=== PATIENT | female | born 1955 | race African-American/Black ===

== ENCOUNTER 2021-10-15 18:04 | Inpatient (IN) | payer OTHER ==
[2021-10-15] MEDS ORDERED: DICYCLOMINE HCL 10 MG CAPSULE PO PRN (22:25)
[2021-10-15] MEDS ORDERED: NICOTINE 10 MG CARTRIDGE (INHALER) IH PRN (22:25)
[2021-10-15] MEDS ORDERED: IBUPROFEN 600 MG TABLET (FP) PO PRN (22:25)
[2021-10-15] MEDS ORDERED: ACETAMINOPHEN 325 MG TABLET (FP) PO PRN (22:25)
[2021-10-15] MEDS ORDERED: BISMUTH SUBSALICYLATE 524 MG/30 ML PO PRN (22:25)
[2021-10-15] MEDS ORDERED: MAGNESIUM HYDROX 2400MG/30ML ORAL SUSPENSION 30 ML CUP PO PRN (22:25)
[2021-10-15] MEDS ORDERED: METHOCARBAMOL 500 MG TABLET PO PRN (22:25)
[2021-10-15] MEDS ORDERED: BENZOCAINE/MENTHOL (CHLORASEPTIC ) LOZENGE MM PRN (22:25)
[2021-10-15] MEDS ORDERED: LOPERAMIDE HCL 2 MG CAPSULE PO PRN (22:25)
[2021-10-15] MEDS ORDERED: MAGNESIUM CITRATE 300 ML BOTTLE PO PRN (22:25)
[2021-10-16] MEDS ORDERED: TUBERCULIN PPD 5 TU/0.1ML VIAL ID ONE (02:39)
[2021-10-16] MEDS: ACETAMINOPHEN 325 MG TABLET (FP) PO PRN (03:29)
[2021-10-16] MEDS: hydrOXYzine PAMOATE 25 MG CAPSULE (FP) PO SCH ×5 (07:23→21:23)
[2021-10-16] MEDS: PRENATAL VITAMINS W/ FOLIC ACID TABLET (FP) PO SCH (11:05)
[2021-10-16] MEDS: IBUPROFEN 400 MG TABLET (FP) PO PRN (11:11)
[2021-10-16] MEDS: MAG HYDROX/AL HYDROX/SIMETH 30 ML UNIT-DOSE CUP PO PRN (11:11)
[2021-10-16 12:33] LABS: HEMOGLOBIN 11.1 GM/dL (10.7-15.3); MCH 33.4 pg (25.7-33.7); MCHC 33.5 g/dl (32.0-36.0); MEAN CELL VOLUME 99.5 fl (80-96); MEAN PLT VOLUME 8.9 fl (7.5-11.1); PLATELET COUNT 111 10^3/uL (134-434); RBC 3.31 M/mm3 (3.60-5.2)
[2021-10-16 12:47] LABS: ALBUMIN 3.2 g/dl (3.4-5.0); BLOOD UREA NITROGEN 8.3 mg/dL (7-18)
[2021-10-16 12:50] LABS: BILIRUBIN,TOTAL 0.8 mg/dL (0.2-1); CREATININE 0.6 mg/dL (0.55-1.3)
[2021-10-16 12:52] LABS: TOT PROT 5.9 g/dl (6.4-8.2)
[2021-10-16] MEDS: THIAMINE HCL 100 MG TABLET (FP) PO SCH (21:23)
[2021-10-16] MEDS: MELATONIN 5 MG TABLETS PO SCH (21:24)
[2021-10-17] MEDS: hydrOXYzine PAMOATE 25 MG CAPSULE (FP) PO SCH ×5 (06:37→21:26)
[2021-10-17] MEDS: metFORMIN HCL 500 MG TABLET (FP) PO SCH (06:40)
[2021-10-17] MEDS: MAG HYDROX/AL HYDROX/SIMETH 30 ML UNIT-DOSE CUP PO PRN ×2 (06:41→21:29)
[2021-10-17] MEDS: amLODIPine BESYLATE 10 MG TABLET (FP) PO SCH (10:59)
[2021-10-17] MEDS: PRENATAL VITAMINS W/ FOLIC ACID TABLET (FP) PO SCH (10:59)
[2021-10-17] MEDS: ACETAMINOPHEN 325 MG TABLET (FP) PO PRN (11:00)
[2021-10-17] MEDS: THIAMINE HCL 100 MG TABLET (FP) PO SCH (21:26)
[2021-10-17] MEDS: MELATONIN 5 MG TABLETS PO SCH (21:29)
[2021-10-18] MEDS: hydrOXYzine PAMOATE 25 MG CAPSULE (FP) PO SCH ×5 (06:40→21:20)
[2021-10-18] MEDS: MAG HYDROX/AL HYDROX/SIMETH 30 ML UNIT-DOSE CUP PO PRN ×2 (06:40→18:58)
[2021-10-18] MEDS: metFORMIN HCL 500 MG TABLET (FP) PO SCH (06:40)
[2021-10-18] MEDS: ONDANSETRON *ODT* 4 MG TABLET SL PRN (09:28)
[2021-10-18] MEDS: amLODIPine BESYLATE 10 MG TABLET (FP) PO SCH (10:51)
[2021-10-18] MEDS: PRENATAL VITAMINS W/ FOLIC ACID TABLET (FP) PO SCH (10:51)
[2021-10-18] MEDS: FAMOTIDINE 20 MG TABLET PO SCH (21:20)
[2021-10-18] MEDS: MELATONIN 5 MG TABLETS PO SCH (21:20)
[2021-10-18] MEDS: THIAMINE HCL 100 MG TABLET (FP) PO SCH (21:21)
[2021-10-19] MEDS: hydrOXYzine PAMOATE 25 MG CAPSULE (FP) PO SCH ×5 (06:48→21:47)
[2021-10-19] MEDS: metFORMIN HCL 500 MG TABLET (FP) PO SCH (06:48)
[2021-10-19] MEDS: MAG HYDROX/AL HYDROX/SIMETH 30 ML UNIT-DOSE CUP PO PRN (06:49)
[2021-10-19] MEDS: PRENATAL VITAMINS W/ FOLIC ACID TABLET (FP) PO SCH (10:46)
[2021-10-19] MEDS: FAMOTIDINE 20 MG TABLET PO SCH ×2 (10:47→21:47)
[2021-10-19] MEDS: amLODIPine BESYLATE 10 MG TABLET (FP) PO SCH (10:47)
[2021-10-19] MEDS: MELATONIN 5 MG TABLETS PO SCH (21:47)
[2021-10-19] MEDS: THIAMINE HCL 100 MG TABLET (FP) PO SCH (21:47)
[2021-10-20] MEDS: hydrOXYzine PAMOATE 25 MG CAPSULE (FP) PO SCH ×5 (06:20→21:17)
[2021-10-20] MEDS: metFORMIN HCL 500 MG TABLET (FP) PO SCH (06:20)
[2021-10-20] MEDS: IBUPROFEN 400 MG TABLET (FP) PO PRN (06:20)
[2021-10-20] MEDS: FAMOTIDINE 20 MG TABLET PO SCH ×2 (10:15→21:17)
[2021-10-20] MEDS: amLODIPine BESYLATE 10 MG TABLET (FP) PO SCH (10:15)
[2021-10-20] MEDS: PRENATAL VITAMINS W/ FOLIC ACID TABLET (FP) PO SCH (10:17)
[2021-10-20] MEDS: MAG HYDROX/AL HYDROX/SIMETH 30 ML UNIT-DOSE CUP PO PRN ×2 (10:17→21:19)
[2021-10-20] MEDS: MELATONIN 5 MG TABLETS PO SCH (21:17)
[2021-10-20] MEDS: THIAMINE HCL 100 MG TABLET (FP) PO SCH (21:17)
[2021-10-20] MEDS: ACETAMINOPHEN 325 MG TABLET (FP) PO PRN (21:18)
[2021-10-21] MEDS: metFORMIN HCL 500 MG TABLET (FP) PO SCH (06:55)
[2021-10-21] MEDS: hydrOXYzine PAMOATE 25 MG CAPSULE (FP) PO SCH ×3 (06:55→16:11)
[2021-10-21] MEDS: MAG HYDROX/AL HYDROX/SIMETH 30 ML UNIT-DOSE CUP PO PRN (10:46)
[2021-10-21] MEDS: amLODIPine BESYLATE 10 MG TABLET (FP) PO SCH (10:46)
[2021-10-21] MEDS: FAMOTIDINE 20 MG TABLET PO SCH ×2 (10:46→21:51)
[2021-10-21] MEDS: PRENATAL VITAMINS W/ FOLIC ACID TABLET (FP) PO SCH (10:47)
[2021-10-21] MEDS: ACETAMINOPHEN 325 MG TABLET (FP) PO PRN (10:48)
[2021-10-21] MEDS ORDERED: hydrOXYzine PAMOATE 25 MG CAPSULE (FP) PO PRN (16:22)
[2021-10-21] MEDS: MELATONIN 5 MG TABLETS PO SCH (21:51)
[2021-10-21] MEDS: THIAMINE HCL 100 MG TABLET (FP) PO SCH (21:51)
[2021-10-21] MEDS: IBUPROFEN 400 MG TABLET (FP) PO PRN (21:54)
[2021-10-22] MEDS: metFORMIN HCL 500 MG TABLET (FP) PO SCH (07:44)
[2021-10-22] MEDS: PRENATAL VITAMINS W/ FOLIC ACID TABLET (FP) PO SCH (10:20)
[2021-10-22] MEDS: FAMOTIDINE 20 MG TABLET PO SCH ×2 (10:20→21:26)
[2021-10-22] MEDS: amLODIPine BESYLATE 10 MG TABLET (FP) PO SCH (10:20)
[2021-10-22] MEDS: MAG HYDROX/AL HYDROX/SIMETH 30 ML UNIT-DOSE CUP PO PRN (10:21)
[2021-10-22] MEDS: ONDANSETRON *ODT* 4 MG TABLET SL PRN (20:24)
[2021-10-22] MEDS: MELATONIN 5 MG TABLETS PO SCH (21:26)
[2021-10-22] MEDS: THIAMINE HCL 100 MG TABLET (FP) PO SCH (21:26)
[2021-10-22] MEDS: ACETAMINOPHEN 325 MG TABLET (FP) PO PRN (21:27)
[2021-10-23] MEDS: metFORMIN HCL 500 MG TABLET (FP) PO SCH (07:10)
[2021-10-23] MEDS: PRENATAL VITAMINS W/ FOLIC ACID TABLET (FP) PO SCH (10:45)
[2021-10-23] MEDS: FAMOTIDINE 20 MG TABLET PO SCH ×2 (10:45→21:57)
[2021-10-23] MEDS: amLODIPine BESYLATE 10 MG TABLET (FP) PO SCH (10:46)
[2021-10-23] MEDS: ACETAMINOPHEN 325 MG TABLET (FP) PO PRN (10:47)
[2021-10-23] MEDS: THIAMINE HCL 100 MG TABLET (FP) PO SCH (21:57)
[2021-10-23] MEDS: MELATONIN 5 MG TABLETS PO SCH (21:57)
[2021-10-24] MEDS: ACETAMINOPHEN 325 MG TABLET (FP) PO PRN (05:47)
[2021-10-24] MEDS: metFORMIN HCL 500 MG TABLET (FP) PO SCH (06:46)
[2021-10-24] MEDS ORDERED: INSULIN SLIDING SCALE (NOVOLOG) 1 VIAL SQ ONE (08:15)
[2021-10-24] MEDS: PRENATAL VITAMINS W/ FOLIC ACID TABLET (FP) PO SCH (10:40)
[2021-10-24] MEDS: amLODIPine BESYLATE 10 MG TABLET (FP) PO SCH (10:40)
[2021-10-24] MEDS: FAMOTIDINE 20 MG TABLET PO SCH ×2 (10:40→22:07)
[2021-10-24] MEDS: THIAMINE HCL 100 MG TABLET (FP) PO SCH (22:06)
[2021-10-24] MEDS: MELATONIN 5 MG TABLETS PO SCH (22:07)
[2021-10-25] MEDS: metFORMIN HCL 500 MG TABLET (FP) PO SCH (06:35)
[2021-10-25 08:17] VITALS: RESP 18
[2021-10-25] MEDS: PRENATAL VITAMINS W/ FOLIC ACID TABLET (FP) PO SCH (10:35)
[2021-10-25] MEDS: FAMOTIDINE 20 MG TABLET PO SCH ×2 (10:36→21:19)
[2021-10-25] MEDS: amLODIPine BESYLATE 10 MG TABLET (FP) PO SCH (10:36)
[2021-10-25] MEDS: THIAMINE HCL 100 MG TABLET (FP) PO SCH (21:19)
[2021-10-25] MEDS: MELATONIN 5 MG TABLETS PO SCH (21:20)
[2021-10-26] MEDS: metFORMIN HCL 500 MG TABLET (FP) PO SCH (06:26)
[2021-10-26] MEDS: MAG HYDROX/AL HYDROX/SIMETH 30 ML UNIT-DOSE CUP PO PRN (06:27)
[2021-10-26] MEDS: amLODIPine BESYLATE 10 MG TABLET (FP) PO SCH (10:35)
[2021-10-26] MEDS: PRENATAL VITAMINS W/ FOLIC ACID TABLET (FP) PO SCH (10:35)
[2021-10-26] MEDS: FAMOTIDINE 20 MG TABLET PO SCH ×2 (10:35→21:15)
[2021-10-26] MEDS: THIAMINE HCL 100 MG TABLET (FP) PO SCH (21:15)
[2021-10-26] MEDS: MELATONIN 5 MG TABLETS PO SCH (21:15)
[2021-10-27] MEDS: metFORMIN HCL 500 MG TABLET (FP) PO SCH (06:01)
[2021-10-27] MEDS: FAMOTIDINE 20 MG TABLET PO SCH ×2 (10:33→21:18)
[2021-10-27] MEDS: PRENATAL VITAMINS W/ FOLIC ACID TABLET (FP) PO SCH (10:33)
[2021-10-27] MEDS: amLODIPine BESYLATE 10 MG TABLET (FP) PO SCH (10:33)
[2021-10-27] MEDS: THIAMINE HCL 100 MG TABLET (FP) PO SCH (21:18)
[2021-10-27] MEDS: MELATONIN 5 MG TABLETS PO SCH (21:18)
[2021-10-28] MEDS: metFORMIN HCL 500 MG TABLET (FP) PO SCH (06:21)
[2021-10-28] MEDS: PRENATAL VITAMINS W/ FOLIC ACID TABLET (FP) PO SCH (10:39)
[2021-10-28] MEDS: amLODIPine BESYLATE 10 MG TABLET (FP) PO SCH (10:40)
[2021-10-28] MEDS: FAMOTIDINE 20 MG TABLET PO SCH ×2 (10:40→21:09)
[2021-10-28] MEDS: MELATONIN 5 MG TABLETS PO SCH (21:09)
[2021-10-28] MEDS: THIAMINE HCL 100 MG TABLET (FP) PO SCH (21:10)
[2021-10-29] MEDS: metFORMIN HCL 500 MG TABLET (FP) PO SCH (06:00)
[2021-10-29 07:16] VITALS: TEMP 97.7
[2021-10-29] MEDS: FAMOTIDINE 20 MG TABLET PO SCH (09:40)
[2021-10-29] MEDS: PRENATAL VITAMINS W/ FOLIC ACID TABLET (FP) PO SCH (09:40)
[2021-10-29] MEDS: amLODIPine BESYLATE 10 MG TABLET (FP) PO SCH (09:41)
[2021-10-29 11:19] VITALS: BP 152/71; PULSE 80
== END 2021-10-29 10:00 | disposition home or self-care (01) | DRG 895 ==
LOC: YASAS 18:04 → Y5N 10-16 02:19
PROVIDERS: ADMIT Allergy & Immunology; ATTEND Surgery
PROC: HZ42ZZZ Group Counseling for Substance Abuse Treatment, Cognitive-Behavioral (ICD-10-PCS; principal; 2021-10-16)
DX: F10.20 Alcohol dependence, uncomplicated (principal); I10 Essential (primary) hypertension; E11.9 Type 2 diabetes mellitus without complications; K21.9 Gastro-esophageal reflux disease without esophagitis; K70.10 Alcoholic hepatitis without ascites; G56.03 Carpal tunnel syndrome, bilateral upper limbs; J44.9 Chronic obstructive pulmonary disease, unspecified; M19.90 Unspecified osteoarthritis, unspecified site; R32 Unspecified urinary incontinence; G47.30 Sleep apnea, unspecified; K44.9 Diaphragmatic hernia without obstruction or gangrene; Z88.6 Allergy status to analgesic agent; Z87.891 Personal history of nicotine dependence; Z79.84 Long term (current) use of oral hypoglycemic drugs; Z28.310 Unvaccinated for COVID-19; Z87.19 Personal history of other diseases of the digestive system
CPT/HCPCS: 36415; 80053; 82962; 85027; 86780; 93005; 93010; C9803-CS; Q0162; U0003; U0005